=== PATIENT | male | born 1990 | race Caucasian/White ===

== ENCOUNTER 2021-03-13 17:09 | Inpatient (IN) | payer BC ==
[~2021-03-13] VITALS: Ht 177.8 cm; Wt 108.4 kg
[2021-03-13 19:15] LABS: HEMOGLOBIN 16.9 gm/dl (14.0-17.5); RED BLOOD COUNT 5.3 M/UL (4.20-5.50); WHITE BLOOD COUNT 5.1 K/UL (4.5-11.0)
[2021-03-13 19:35] LABS: BUN/CREATININE RATIO 14 (0-10)
[2021-03-14 08:44] LABS: HEMOGLOBIN 16.5 gm/dl (14.0-17.5); RED BLOOD COUNT 5.2 M/UL (4.20-5.50); WHITE BLOOD COUNT 5.5 K/UL (4.5-11.0)
[2021-03-14 09:05] LABS: BUN/CREATININE RATIO 16 (0-10)
[2021-03-15] MEDS ORDERED: DECADRON6 MG PO (15:55)
== END 2021-03-15 17:55 | disposition home or self-care (01) | DRG 177 ==
LOC: ER1 17:09 → MED SURG 4 03-14 → CDU 03-14 → MED SURG 4 03-14 02:03
PROVIDERS: Physician Assistant; ADMIT Internal Medicine
PROC: 8E0ZXY6 Isolation (ICD-10-PCS; principal; 2021-03-13)
PROC: XW033E5 Introduction of Remdesivir Anti-infective into Peripheral Vein, Percutaneous Approach, New Technology Group 5 (ICD-10-PCS; 2021-03-13)
PROC: 3E0333Z Introduction of Anti-inflammatory into Peripheral Vein, Percutaneous Approach (ICD-10-PCS; 2021-03-13)
PROC: XW033G6 Introduction of REGN-COV2 Monoclonal Antibody into Peripheral Vein, Percutaneous Approach, New Technology Group 6 (ICD-10-PCS; 2021-03-13)
DX: U07.1 COVID-19 (principal); J12.82 Pneumonia due to coronavirus disease 2019; J96.01 Acute respiratory failure with hypoxia; Z99.81 Dependence on supplemental oxygen; Z23 Encounter for immunization
CPT/HCPCS: 36600; 71045; 80053; 82803; 83605; 83735; 83880; 85025; 85027; 85379; 85652; 86140; 87040; 94640; 94664; 94760; 99284; J1100; J1650; J7030; M0243; U0002